=== PATIENT | female | born 1930 | race Caucasian/White ===

== ENCOUNTER 2018-03-16 18:03 | Inpatient (IN) | payer MEDICARE, OTHER ==
[2018-03-16 19:04] LABS: ADD MAN DIFF? NO
[2018-03-16 19:07] LABS: BASOPHILS % 0.3 % (0.0-2.0); EOSINOPHILS # 0.1 10^3/ul (0.0-0.5); HEMATOCRIT 28.8 % (37.0-47.0); HEMOGLOBIN 8.9 g/dl (12.0-16.0); LYMPHOCYTES # 2.6 10^3/ul (0.8-2.9); LYMPHOCYTES % 38.6 % (15.0-51.0); MEAN CORPUSCULAR HEMOGLOBIN 19.5 pg (29.0-33.0); MEAN CORPUSCULAR HGB CONC 30.9 g/dl (32.0-37.0); MEAN CORPUSCULAR VOLUME 63.2 fl (82.0-101.0); MEAN PLATELET VOLUME 10.7 fl (7.4-10.4); MONOCYTE # 0.7 10^3/ul (0.3-0.9); MONOCYTES % 9.5 % (0.0-11.0); NEUTROPHIL # 3.4 10^3/ul (1.6-7.5); NEUTROPHILS % 50.3 % (39.0-77.0); PLATELET COUNT 249 10^3/UL (140-415); RED BLOOD COUNT 4.56 10^6/ul (4.20-5.40); RED CELL DISTRIBUTION WIDTH 16.9 % (11.5-14.5)
[2018-03-16 19:07] LABS: WHITE BLOOD COUNT 6.8 10^3/ul (4.8-10.8)
[2018-03-16 19:24] LABS: ANION GAP 10 (8-16); BLOOD UREA NITROGEN 27 mg/dl (7-20); CALCIUM 8.6 mg/dl (8.4-10.2); CARBON DIOXIDE 29 mmol/L (21-31); CHLORIDE 104 mmol/L (97-110); CREATININE 1.44 mg/dl (0.44-1.00); GLUCOSE 97 mg/dl (70-220); SODIUM 139 mmol/L (135-144)
[2018-03-16 19:28] LABS: INR 1.03; PROTIME 13.6 Sec (11.9-14.9); PT RATIO 1.1
[2018-03-16 19:29] LABS: PARTIAL THROMBOPLASTIN TIME 24.9 Sec (25.0-35.0)
[2018-03-16] MEDS ORDERED: ACETAMINOPHEN 325 MG TAB PO (19:30)
[2018-03-16] MEDS ORDERED: ONDANSETRON 4 MG INJ IV (19:30)
[2018-03-16 19:35] LABS: TROPONIN-I < 0.010 ng/ml (0.000-0.120)
[2018-03-17] MEDS: LEVOTHYROXINE 50 MCG TAB PO (05:41)
[2018-03-17] MEDS: FUROSEMIDE 20 MG TAB PO ×2 (05:42→17:32)
[2018-03-17] MEDS: PANTOPRAZOLE (EC) 40 MG TAB PO (05:47)
[2018-03-17] MEDS: AMLODIPINE 5 MG TAB PO (09:00)
[2018-03-17] MEDS: LOSARTAN 50 MG TAB PO (09:00)
[2018-03-17] MEDS: DONEPEZIL 5 MG TAB PO (09:56)
[2018-03-17] MEDS: GABAPENTIN 400 MG CAP PO (09:56)
[2018-03-17] MEDS: MEMANTINE 10 MG TAB PO (09:56)
[2018-03-17] MEDS: VENLAFAXINE 75 MG TABLET PO (09:56)
[2018-03-17] MEDS: POTASSIUM CHLORIDE (SR) 10 MEQ TAB PO (09:56)
[2018-03-17] MEDS: CLOPIDOGREL 75 MG TAB PO (09:56)
[2018-03-17] MEDS: SOLIFENACIN 5 MG TAB PO (09:56)
[2018-03-17] MEDS: DOCUSATE SODIUM 100 MG CAP PO ×2 (09:56→20:31)
[2018-03-17] MEDS: ATORVASTATIN 40 MG TAB PO (20:31)
[2018-03-18] MEDS: LEVOTHYROXINE 50 MCG TAB PO (06:18)
[2018-03-18] MEDS: PANTOPRAZOLE (EC) 40 MG TAB PO (06:18)
[2018-03-18] MEDS: FUROSEMIDE 20 MG TAB PO (06:22)
[2018-03-18] MEDS: GABAPENTIN 400 MG CAP PO (08:30)
[2018-03-18] MEDS: DONEPEZIL 5 MG TAB PO (08:30)
[2018-03-18] MEDS: POTASSIUM CHLORIDE (SR) 10 MEQ TAB PO (08:30)
[2018-03-18] MEDS: VENLAFAXINE 75 MG TABLET PO (08:30)
[2018-03-18] MEDS: LOSARTAN 50 MG TAB PO (08:30)
[2018-03-18] MEDS: CLOPIDOGREL 75 MG TAB PO (08:30)
[2018-03-18] MEDS: AMLODIPINE 5 MG TAB PO (08:30)
[2018-03-18] MEDS: MEMANTINE 10 MG TAB PO (08:30)
[2018-03-18] MEDS: DOCUSATE SODIUM 100 MG CAP PO ×2 (08:30→20:57)
[2018-03-18] MEDS: SOLIFENACIN 5 MG TAB PO (08:31)
[2018-03-18] MEDS: SOD CHLORIDE 0.9% 1,000 ML IV (14:34)
[2018-03-18] MEDS: ATORVASTATIN 40 MG TAB PO (20:57)
[2018-03-19] MEDS: SOD CHLORIDE 0.9% 1,000 ML IV ×3 (00:39→22:42)
[2018-03-19] MEDS: PANTOPRAZOLE (EC) 40 MG TAB PO (05:41)
[2018-03-19] MEDS: LEVOTHYROXINE 50 MCG TAB PO (05:41)
[2018-03-19] MEDS: VENLAFAXINE 75 MG TABLET PO ×2 (08:19→15:23)
[2018-03-19] MEDS: MEMANTINE 10 MG TAB PO ×2 (08:19→15:23)
[2018-03-19] MEDS: DONEPEZIL 5 MG TAB PO ×2 (08:19→15:23)
[2018-03-19] MEDS: DOCUSATE SODIUM 100 MG CAP PO ×2 (08:19→15:22)
[2018-03-19] MEDS: POTASSIUM CHLORIDE (SR) 10 MEQ TAB PO ×2 (08:19→15:22)
[2018-03-19] MEDS: GABAPENTIN 400 MG CAP PO ×2 (08:20→15:22)
[2018-03-19] MEDS: AMLODIPINE 5 MG TAB PO (08:20)
[2018-03-19] MEDS: SOLIFENACIN 5 MG TAB PO ×2 (08:20→15:23)
[2018-03-19] MEDS: CLOPIDOGREL 75 MG TAB PO ×2 (08:20→15:23)
[2018-03-19] MEDS ORDERED: POLYMYXIN/BACITRACIN 1L IRRIG (11:00)
[2018-03-19] MEDS ORDERED: CEFAZOLIN 1 GM/50 ML (PMX) 100 ML IVPB (11:02)
[2018-03-19] MEDS ORDERED: SOD CHLORIDE 0.9% 500 ML (11:03)
[2018-03-19] MEDS ORDERED: BUPIVACAINE 0.5% (SDV) 30 ML INJ ×2 (11:19→11:37)
[2018-03-19] MEDS ORDERED: PROPOFOL 20 ML ×2 (11:24→12:00)
[2018-03-19] MEDS ORDERED: FENTAnyl 50 MCG/ML VIAL (11:24)
[2018-03-19] MEDS ORDERED: hydrALAzine 20 MG INJ IV (11:30)
[2018-03-19] MEDS ORDERED: HYDROmorphONE 1 MG/5 ML IV SYRINGE IV (11:30)
[2018-03-19] MEDS ORDERED: ONDANSETRON 4 MG INJ IV (11:30)
[2018-03-19] MEDS ORDERED: LABETALOL HCL 20MG INJ IV (11:30)
[2018-03-19] MEDS ORDERED: EPHEDrine SULFATE 50 MG/5 ML SYG IV (11:30)
[2018-03-19] MEDS ORDERED: EPHEDrine SULFATE 50 MG/5 ML SYG (11:59)
[2018-03-19] MEDS ORDERED: PHENYLephrine (100 MCG/ML) 5ML SYG (12:03)
[2018-03-19] MEDS ORDERED: morphine 2 MG INJ IV (13:00)
[2018-03-19] MEDS: FENTAnyl 50 MCG/ML VIAL IV (13:17)
[2018-03-19] MEDS: ACETAMINOPHEN 325 MG TAB PO (15:47)
[2018-03-19] MEDS: ATORVASTATIN 40 MG TAB PO (20:48)
[2018-03-19] MEDS: morphine LIQ (10 MG/5 ML) CUP PO (21:06)
[2018-03-20] MEDS: AL HYDROX/MG HYDROX/SIMETH 30 ML CUP PO (02:36)
[2018-03-20] MEDS: BISACODYL (EC) 5 MG TAB PO (02:36)
[2018-03-20] MEDS: SOD CHLORIDE 0.9% 1,000 ML IV ×2 (05:00→08:30)
[2018-03-20] MEDS: LEVOTHYROXINE 50 MCG TAB PO (05:20)
[2018-03-20] MEDS: PANTOPRAZOLE (EC) 40 MG TAB PO (05:20)
[2018-03-20 06:15] LABS: ADD MAN DIFF? NO
[2018-03-20 06:26] LABS: ABNORMAL IP MESSAGE 1; BASOPHIL # 0.1 10^3/ul (0.0-0.1); BASOPHILS % 0.6 % (0.0-2.0); EOSINOPHILS # 0.2 10^3/ul (0.0-0.5); EOSINOPHILS % 2.1 % (0.0-7.0); HEMATOCRIT 32.1 % (37.0-47.0); HEMOGLOBIN 9.8 g/dl (12.0-16.0); LYMPHOCYTES % 22.8 % (15.0-51.0); MEAN CORPUSCULAR HEMOGLOBIN 19.7 pg (29.0-33.0); MEAN CORPUSCULAR HGB CONC 30.5 g/dl (32.0-37.0); MEAN CORPUSCULAR VOLUME 64.6 fl (82.0-101.0); MEAN PLATELET VOLUME 10.8 fl (7.4-10.4); MONOCYTE # 0.7 10^3/ul (0.3-0.9); MONOCYTES % 8.6 % (0.0-11.0); NEUTROPHIL # 5.7 10^3/ul (1.6-7.5); NEUTROPHILS % 65.6 % (39.0-77.0); NUCLEATED RED BLOOD CELLS% 0.2 /100WBC (0.0-0.0); PLATELET COUNT 240 10^3/UL (140-415); RED BLOOD COUNT 4.97 10^6/ul (4.20-5.40); RED CELL DISTRIBUTION WIDTH 17.6 % (11.5-14.5)
[2018-03-20 06:26] LABS: WHITE BLOOD COUNT 8.6 10^3/ul (4.8-10.8)
[2018-03-20 06:34] LABS: POSITIVE DIFF @See below
[2018-03-20 06:59] LABS: ANION GAP 10 (8-16); BLOOD UREA NITROGEN 16 mg/dl (7-20); CALCIUM 8.4 mg/dl (8.4-10.2); CARBON DIOXIDE 26 mmol/L (21-31); CHLORIDE 110 mmol/L (97-110); GLUCOSE 95 mg/dl (70-220); POTASSIUM 4.1 mmol/L (3.5-5.1); SODIUM 142 mmol/L (135-144)
[2018-03-20] MEDS: CLOPIDOGREL 75 MG TAB PO (08:29)
[2018-03-20] MEDS: VENLAFAXINE 75 MG TABLET PO (08:29)
[2018-03-20] MEDS: DOCUSATE SODIUM 100 MG CAP PO (08:29)
[2018-03-20] MEDS: POTASSIUM CHLORIDE (SR) 10 MEQ TAB PO (08:30)
[2018-03-20] MEDS: GABAPENTIN 400 MG CAP PO (08:30)
[2018-03-20] MEDS: AMLODIPINE 5 MG TAB PO (08:30)
[2018-03-20] MEDS: MEMANTINE 10 MG TAB PO (08:30)
[2018-03-20] MEDS: SOLIFENACIN 5 MG TAB PO (08:30)
[2018-03-20] MEDS: DONEPEZIL 5 MG TAB PO (08:30)
[2018-03-20] MEDS: CEFAZOLIN 1 GM/50 ML (PMX) 50 ML IVPB (09:04)
== END 2018-03-20 14:18 | disposition home or self-care (01) | DRG 261 ==
LOC: E/R 18:03 → TEL 03-19 22:46
PROC: 02HK3JZ Insertion of Pacemaker Lead into Right Ventricle, Percutaneous Approach (ICD-10-PCS; principal; 2018-03-19 11:12)
DX: T82.110A Breakdown (mechanical) of cardiac electrode, initial encounter (principal); I47.2 Ventricular tachycardia; F03.90 Unspecified dementia, unspecified severity, without behavioral disturbance, psychotic disturbance, mood disturbance, and anxiety; E03.9 Hypothyroidism, unspecified; I10 Essential (primary) hypertension; R00.1 Bradycardia, unspecified
CPT/HCPCS: 33227; 36415; 71045; 80048; 84443; 84484; 85025; 85610; 85730; 93005; 99285-25